=== PATIENT | female | born 1935 | race Caucasian/White ===

== ENCOUNTER 2017-01-12 13:48 | Emergency (ER) | payer OTHER ==
[~2017-01-12] VITALS: Ht 154.9 cm; Wt 55.8 kg
[~2017-01-12 13:48] MED LIST: ALENDRONATE SOD70 MG PO; BONIVA150 MG PO; CALCIUM 500 +1 EAC5 PO; CARVEDILOL25 MG PO; DIABETA 5MG TABL5 MG PO; FOLIC ACID1 MG PO; LEVOTHYROXIN0.075 MG PO; LEVOTHYROXINE 0.1 MG PO; LIPITOR10 MG PO; LISINOPRIL10 MG PO; MELOXICAM7.5 MG PO; METFORMIN HCL500 MG PO; METHOTREXATE 22.5 MG PO; NOVOLIN 70100 UNIT/5; NOVOLOG100 UNIT/1 SQ; PREDNISONE 5 MG5 M1 PO; PREDNISONE PO; VITAMIN D2000 UNIT PO
[2017-01-12] MEDS ORDERED: NORCO 5-325 TA1 EACH PO (14:47)
== END 2017-01-12 15:51 | disposition home or self-care (01) ==
LOC: ER 13:48
DX: S62.29 Other fracture of first metacarpal bone (principal); E11.9 Type 2 diabetes mellitus without complications; I10 Essential (primary) hypertension; M06.9 Rheumatoid arthritis, unspecified; Z79.4 Long term (current) use of insulin; F17.210 Nicotine dependence, cigarettes, uncomplicated; W18.39XD Other fall on same level, subsequent encounter

== ENCOUNTER 2017-02-08 11:21 | Inpatient (IN) | payer OTHER ==
[~2017-02-08] VITALS: Ht 165.1 cm; Wt 65.8 kg
[~2017-02-08 11:21] MED LIST changes: +NORCO 5-325 TA1 EACH PO
[2017-02-08 11:46] VITALS: BP 162/56
[2017-02-08] MEDS ORDERED: APAP500 PO (13:08)
[2017-02-08 13:10] LABS: HEMATOCRIT 34.9 % (37.0-47.0); HEMOGLOBIN 11.1 gm/dL (12.0-15.0); MCH 24.1 pg (26.0-34.0); MCHC 31.8 g/dL (28.0-37.0); MCV 75.9 fL (80.0-100.0); RBC 4.61 mil/uL (4.20-5.00); RDW 15.8 % (10.5-14.5); WBC 15.9 thou/uL (4.0-11.0)
[2017-02-08] MEDS ORDERED: HYDROXYZINE HCL25 M1 PO (13:11)
[2017-02-08] MEDS ORDERED: NOVOLOG100 UNIT/1 SUBQ ×2 (13:14→13:15)
[2017-02-08] MEDS ORDERED: PROAIR HFA8.5 GM INH (13:16)
[2017-02-08] MEDS ORDERED: ZOLOFT25 MG PO (13:17)
[2017-02-08] MEDS ORDERED: NORVASC2.5 MG PO (13:17)
[2017-02-08 13:20] LABS: CALCIUM 9.2 mg/dL (8.5-10.1); CREATININE 0.6 mg/dL (0.6-1.0); POTASSIUM 3.4 mmol/L (3.5-5.1)
[2017-02-08 13:27] LABS: ALBUMIN 2.8 g/dL (3.4-5.0); TOTAL BILIRUBIN 0.4 mg/dL (<0.1-1.0); TOTAL PROTEIN 6.3 g/dL (6.4-8.2)
[2017-02-08 14:11] LABS: TSH 1.398 uIU/mL (0.358-3.740)
[2017-02-08 15:07] LABS: URINE BILIRUBIN NEGATIVE (Negative); URINE BLOOD NEGATIVE (Negative); URINE COLOR YELLOW; URINE GLUCOSE-RANDOM* 2+ (Negative); URINE KETONES NEGATIVE (Negative); URINE NITRITE NEGATIVE (Negative); URINE PROTEIN (DIPSTICK) NEGATIVE (Negative); URINE SPECIFIC GRAVITY <= 1.005 (1.003-1.035); URINE UROBILINOGEN 0.2 E.U./dl (0.2-1.0)
[2017-02-08 17:34] VITALS: BP 130/55
[2017-02-08 19:42] VITALS: BP 104/32
[2017-02-09 03:45] LABS: ALBUMIN 2.1 g/dL (3.4-5.0); CREATININE 0.4 mg/dL (0.6-1.0); POTASSIUM 3.5 mmol/L (3.5-5.1)
[2017-02-09 04:11] LABS: GLYCOHEMOGLOBIN (HGB A1C) 11.3 % (4.8-5.6)
[2017-02-09 05:49] VITALS: BP 118/45
[2017-02-09 08:22] VITALS: BP 111/41
[2017-02-09 16:15] VITALS: BP 97/50
[2017-02-09 20:10] VITALS: BP 117/52
[2017-02-10 03:50] VITALS: BP 137/53
[2017-02-10 06:11] LABS: HEMATOCRIT 28.3 % (37.0-47.0); MCH 24.1 pg (26.0-34.0); MCHC 31.5 g/dL (28.0-37.0); MCV 76.6 fL (80.0-100.0); RBC 3.7 mil/uL (4.20-5.00); RDW 15.9 % (10.5-14.5); WBC 12.2 thou/uL (4.0-11.0)
[2017-02-10 07:42] VITALS: BP 140/50
[2017-02-10 08:05] LABS: HEMOGLOBIN 8.9 gm/dL (12.0-15.0)
[2017-02-10 16:16] VITALS: BP 150/51
[2017-02-10 19:33] VITALS: BP 147/45
[2017-02-11 04:39] VITALS: BP 135/36
[2017-02-11 05:48] LABS: HEMATOCRIT 28.7 % (37.0-47.0); HEMOGLOBIN 9.2 gm/dL (12.0-15.0); MCH 24.4 pg (26.0-34.0); MCHC 32.2 g/dL (28.0-37.0); MCV 75.8 fL (80.0-100.0); RBC 3.78 mil/uL (4.20-5.00); RDW 15.7 % (10.5-14.5); WBC 11.7 thou/uL (4.0-11.0)
[2017-02-11 08:00] VITALS: BP 145/57
[2017-02-11] MEDS ORDERED: BENAZEPRIL HCL10 MG PO (10:17)
[2017-02-11] MEDS ORDERED: ACETAMINOPHEN325 M1 PO (10:17)
[2017-02-11] MEDS ORDERED: HUMALOG100 UNIT/1 SUBQ (10:18)
[2017-02-11] MEDS ORDERED: LANTUS100 UNIT/M SUBQ ×2 (10:18→10:27)
[2017-02-11] MEDS ORDERED: METFORMIN HCL500 MG PO (10:27)
== END 2017-02-11 15:11 | DRG 640 ==
LOC: 4S 11:21
PROVIDERS: Hospitalist
DX: E87.1 Hypo-osmolality and hyponatremia (principal); E43 Unspecified severe protein-calorie malnutrition; I10 Essential (primary) hypertension; M06.9 Rheumatoid arthritis, unspecified; E86.1 Hypovolemia; E11.65 Type 2 diabetes mellitus with hyperglycemia; E86.0 Dehydration; I95.9 Hypotension, unspecified; Z87.891 Personal history of nicotine dependence; Z79.899 Other long term (current) drug therapy
CPT/HCPCS: 10102

== ENCOUNTER 2017-03-16 06:30 | Emergency (ER) | payer OTHER ==
[~2017-03-16] VITALS: Ht 157.5 cm; Wt 53.5 kg
[~2017-03-16 06:30] MED LIST changes: +ACETAMINOPHEN325 M1 PO; +APAP500 PO; +BENAZEPRIL HCL10 MG PO; +HUMALOG100 UNIT/1 SUBQ; +HYDROXYZINE HCL25 M1 PO; +LANTUS100 UNIT/M SUBQ; +NORVASC2.5 MG PO; +NOVOLOG100 UNIT/1 SUBQ; +PROAIR HFA8.5 GM INH; +ZOLOFT25 MG PO
[2017-03-16] MEDS ORDERED: UNICOMPLEX M TA1 TA1 PO (08:03)
[2017-03-16] MEDS ORDERED: K-DUR 20 MEQ T20 MEQ PO (08:03)
[2017-03-16] MEDS ORDERED: IRON325 PO (08:05)
[2017-03-16] MEDS ORDERED: MAGNESIUM OXID400 MG PO (08:05)
== END 2017-03-16 07:20 | disposition home or self-care (01) ==
LOC: ER 06:30
DX: S00.03XA Contusion of scalp, initial encounter (principal); E11.9 Type 2 diabetes mellitus without complications; I10 Essential (primary) hypertension; M06.9 Rheumatoid arthritis, unspecified; Z79.4 Long term (current) use of insulin; Z87.891 Personal history of nicotine dependence; W01.198A Fall on same level from slipping, tripping and stumbling with subsequent striking against other object, initial encounter; Y93.01 Activity, walking, marching and hiking; Y92.89 Other specified places as the place of occurrence of the external cause; Y99.8 Other external cause status

== ENCOUNTER 2017-09-24 20:39 | Emergency (ER) | payer OTHER ==
[~2017-09-24] VITALS: Ht 154.9 cm; Wt 51.3 kg
[~2017-09-24 20:39] MED LIST changes: +IRON325 PO; +K-DUR 20 MEQ T20 MEQ PO; +MAGNESIUM OXID400 MG PO; +UNICOMPLEX M TA1 TA1 PO
[2017-09-24] MEDS ORDERED: TRAMADOL 50 MG50 MG PO (22:06)
[2017-09-24 22:27] VITALS: BP 148/58
[2018-04-14] MEDS ORDERED: LIPITOR10 MG PO (06:19)
[2018-04-14] MEDS ORDERED: LANTUS SUBQ (06:21)
[2018-04-14] MEDS ORDERED: BENAZEPRIL 10 M10 MG PO (06:21)
[2018-04-14] MEDS ORDERED: COREG12.5 MG PO (06:22)
[2018-04-14] MEDS ORDERED: FOLIC ACID1 MG PO (06:23)
[2018-04-14] MEDS ORDERED: NORCO 5-325 TA1 EACH PO (06:23)
[2018-04-14] MEDS ORDERED: SYNTHROID88 MCG PO (06:24)
[2018-04-14] MEDS ORDERED: LIDOCAINE1 EACH TRANSDERM (06:25)
[2018-04-14] MEDS ORDERED: PREDNISONE 5 MG5 M1 PO (06:27)
[2018-04-14] MEDS ORDERED: VITAMIN B-12500 MCG PO (06:28)
[2018-04-14] MEDS ORDERED: VITAMIN D3400 UNIT PO (06:29)
[2018-05-10] MEDS ORDERED: [UNRECOGNIZED DRUG - CODE] (05:56)
[2018-05-10] MEDS ORDERED: ONCE DAILY1 EAC1 PO (05:57)
[2018-05-10] MEDS ORDERED: NOVOLOG100 UNIT/1 SUBQ (05:58)
[2018-05-10] MEDS ORDERED: PROAIR HFA8.5 GM (06:00)
[2018-05-10] MEDS ORDERED: ZOLOFT50 MG PO (06:01)
== END 2017-09-24 22:29 | disposition home or self-care (01) ==
LOC: ER 20:39
DX: S00.83XA Contusion of other part of head, initial encounter (principal); M54.5 Low back pain; I10 Essential (primary) hypertension; E11.9 Type 2 diabetes mellitus without complications; M06.9 Rheumatoid arthritis, unspecified; Z87.891 Personal history of nicotine dependence; Z79.4 Long term (current) use of insulin; W01.198A Fall on same level from slipping, tripping and stumbling with subsequent striking against other object, initial encounter; Y93.89 Activity, other specified; Y92.89 Other specified places as the place of occurrence of the external cause; Y99.8 Other external cause status